=== PATIENT | male | born 1970 | race Caucasian/White ===

== ENCOUNTER → 2019-02-18 | Outpatient (CLI) | payer OTHER ==
--- NOTE | 2019-02-18 09:53 | CT ---
EXAMINATION TYPE: CT chest w con DATE OF EXAM: 02/18/2019 COMPARISON: NONE HISTORY: Sarcoidosis CT DLP: 458.9 mGycm. Automated Exposure Control for Dose Reduction was Utilized. TECHNIQUE: CT scan of the thorax is performed following with IV Contrast, patient injected with 100 mL of Isovue 300. FINDINGS: LUNGS: There are innumerable pulmonary nodules that appear spiculated. There is also marked peribronc hial thickening predominating in the right middle lobe. There is right hemidiaphragm elevation is pre sent. Remainder of the scattered micronodules are seen with few subtle areas of interlobular septal t hickening. Left upper lobe elongated consolidation is seen surrounding the bronchi as well as anterio r right upper lobe consolidation on image 22. No fibrotic changes are appreciated. MEDIASTINUM: There is mediastinal adenopathy with numerous nonenlarged mediastinal lymph nodes and fe w enlarged mediastinal lymph nodes in the right paratracheal space measuring 1.3 cm in short axis and near the precarinal space also measuring 1.3 cm in short axis as well as of the right hilum measurin g up to 1.2 cm in short axis. Subcarinal lymph node measures 1.9 cm in short axis. Moderate coronary artery calcifications are present. OTHER: Hepatic parenchyma is diffusely hypoattenuated in comparison to that of the spleen, most comm only seen in hepatic steatosis. This finding limits evaluation for hepatic masses. No gross evidence of hepatic mass is seen. No intrahepatic biliary ductal dilatation. Cholelithiasis is also seen. The liver is elongated extending into the left upper quadrant and enlarged. There are periportal lymph no dinah that measured 1.4 and 1.1 cm in short axis and are enlarged as well as the gastric hepatic ligame nt enlarged lymph node measuring 8 mm. Small splenule seen adjacent to the bois forte spleen. IMPRESSION: 1. Although findings of innumerable pulmonary nodules, peribronchial cuffing, mediastinal adenopathy, and parenchymal lung disease are in keeping with this patient's provided history of sarcoidosis woul d be difficult to exclude peribronchial neoplasm or pneumonia given the extensive background lung dis ease. Peribronchial cuffing is most significant in the right middle lobe and endobronchial biopsy cou ld be considered. Additionally comparison could be made with any prior outside imaging. Radiographica lly sarcoid appears stage II with parenchymal disease and mediastinal adenopathy present but without fibrotic change. 2. Enlarged periportal and solitary gastric hepatic lymph node in the upper abdomen. These also may b e reactive. There is adjacent hepatic steatosis and cholelithiasis noted. 3. Moderate coronary calcifications, a marker of coronary artery disease.
== END | disposition home or self-care (01) ==
LOC: RADCTMAIN 08:32
PROVIDERS: ATTEND Internal Medicine Critical Care Medicine
DX: D86.9 Sarcoidosis, unspecified (principal); R59.0 Localized enlarged lymph nodes; J98.4 Other disorders of lung; I25.10 Atherosclerotic heart disease of native coronary artery without angina pectoris
CPT/HCPCS: 71260; Q9967

== ENCOUNTER → 2024-02-15 | Outpatient (CLI) | payer OTHER ==
[2024-02-15 14:48] LABS: Basophils # (A) 0.02 X 10*3/uL (0.00-0.10); Basophils % (A) 0.3 %; Eosinophils # (A) 0.24 X 10*3/uL (0.04-0.35); Eosinophils % (A) 4.1 %; HCT 45.7 % (39.6-50.0); HGB 16.3 g/dL (13.0-17.0); Lymphocytes # (A) 0.83 X 10*3/uL (0.90-5.00); Lymphocytes % (A) 14.2 %; MCH 31.3 pg (27.0-32.0); MCHC 35.7 g/dL (32.0-37.0); MCV 87.9 FL (80.0-97.0); Mean Platelet Volume 11.5 FL (9.5-12.2); Monocytes # (A) 0.54 X 10*3/uL (0.20-1.00); Monocytes % (A) 9.3 %; NRBC Per 100 WBC 0 X 10*3/uL (0.00-0.01); Neutrophils # (A) 4.19 X 10*3/uL (1.80-7.70); Neutrophils % (A) 71.9 %; Platelet Count 120 X 10*3/uL (140-440); RDW 12.7 % (11.5-14.5); WBC 5.83 X 10*3/uL (4.50-10.00)
[2024-02-15 14:50] LABS: ALT 26 U/L (10-49); AST 28 U/L (14-35); Alkaline Phosphatase 84 U/L (41-126); BUN/Creat Ratio 17.44 Ratio (12.00-20.00); Blood Urea Nitrogen 15.7 mg/dL (9.0-27.0); Calcium 9.9 mg/dL (8.7-10.3); Carbon Dioxide 23.9 mmol/L (21.6-31.8); Chloride 107 mmol/L (96-109); Glucose 101 mg/dL (70-110); Potassium 4.4 mmol/L (3.5-5.5); Sodium 142 mmol/L (135-145); Total Bilirubin 0.7 mg/dL (0.3-1.2)
[2024-02-15 14:57] LABS: Hepatitis B Surface Antigen Nonreactive (Nonreactive); Hepatitis C IgG Antibody Nonreactive (Nonreactive)
== END | disposition home or self-care (01) ==
LOC: LABWHC1 09:08
PROVIDERS: ATTEND Internal Medicine Gastroenterology
DX: K76.0 Fatty (change of) liver, not elsewhere classified (principal)
CPT/HCPCS: 36415; 80053; 81596; 85025; 86803; 87340